=== PATIENT | male | born 1995 | race Caucasian/White ===

== ENCOUNTER 2017-11-06 11:07 | Emergency (ER) | payer SELFPAY ==
[~2017-11-06] VITALS: Ht 188 cm; Wt 82.0 kg
[~2017-11-06 11:07] MED LIST: VENTAER INH; ZITHTAB PO
[2017-11-06 11:08] VITALS: BP 132/90; PULSE 111; RESP 14; TEMP 98; O2SAT 100
[2017-11-06] MEDS ORDERED: KETOROLAC TROMETHAMINE 60 MG/2 ML (IM) VIAL IM ONE (11:45)
--- NOTE | 2017-11-06 12:22 | RADRPT ---
EXAM DATE/TIME: 11/06/2017 11:44 [place] COMPARISON: No previous studies available for comparison. INDICATIONS : Pain from impact with object. MEDICAL HISTORY : None. SURGICAL HISTORY : None. ENCOUNTER: Initial ACUITY: 2 days PAIN SCORE: 7/10 LOCATION: Left medial foot. FINDINGS: Three view examination of the left foot demonstrates no soft tissue swelling, dislocation, or fractur e. The tarsal bones appear intact. The interphalangeal and metatarsophalangeal joints are intact. The calcaneus is intact. Bony mineralization is normal. CONCLUSION: 1. No acute fracture or dislocation. Stan Sykes MD on November 06, 2017 at 12:20 Board Certified Radiologist. This report was verified electronically.
[2017-11-06] MEDS ORDERED: IBUP1TAB7 PO (12:30)
--- NOTE | 2017-11-06 12:30 | PD ---
HPI Chief Complaint: Injury Time Seen by Provider: 11:32 Travel History International Travel<30 days: No Contact w/Intl Traveler<30days: No Traveled to known affect area: No History of Present Illness HPI 22-year-old male presents to the emergency department with pain and swelling to the base of the left toe. Patient states he stubbed his toe on a barbell 2 days ago. Patient having difficulty ambulating secondary to the pain today. The area is swollen and red. The distal toe is normal. Patient has no fever chills or open wounds. Patient is allergic to diphenhydramine. PFSH Past Medical History Diminished Hearing: No Respiratory: Yes (WEAK LUNGS WHEN HE WAS A CHILD) Immunizations Current: Yes Tetanus Vaccination: Never Vaccinated Influenza Vaccination: No Past Surgical History Surgical History: No Previous Surgery Social History Alcohol Use: Yes (OCC) Tobacco Use: Yes (/2 PPD ) Substance Use: Yes (MARIJUANA - LAST USE THIS MORNING ) Allergies-Medications (Allergen,Severity, Reaction): Coded Allergies: diphenhydramine (Unverified Allergy, Severe, 11/06/17) EXTREME HYPERACTIVITY Reported Meds & Prescriptions Reported Meds & Active Scripts Active Review of Systems Except as stated in HPI: all other systems reviewed are Neg General / Constitutional: No: Fever Eyes: No: Visual changes HENT: No: Headaches Cardiovascular: No: Chest Pain or Discomfort Respiratory: No: Shortness of Breath Gastrointestinal: No: Abdominal Pain Genitourinary: No: Dysuria Musculoskeletal: Positive: Arthralgias, Limited ROM, Pain Skin: No Rash Neurologic: No: Weakness Psychiatric: No: Depression Endocrine: No: Polydipsia Hematologic/Lymphatic: No: Easy Bruising Physical Exam Narrative GENERAL: Patient appears in mild distress. SKIN: Warm and dry. Normal color. Normal turgor. Patient has erythema to the MIP joint of the left great toe. HEAD: Atraumatic. Normocephalic. EYES: Pupils equal and round. No scleral icterus. No injection or drainage. ENT: No nasal bleeding or discharge. Mucous membranes pink and moist. NECK: Trachea midline. Supple and nontender. CARDIOVASCULAR: Regular rate and rhythm. RESPIRATORY: No accessory muscle use. Clear to auscultation. Breath sounds equal bilaterally. GASTROINTESTINAL: Abdomen soft, non-tender, nondistended. Hepatic and splenic margins not palpable. MUSCULOSKELETAL: Extremities without clubbing, cyanosis, or edema. MIP joint of the left great toe is somewhat swollen and erythematous with tenderness with palpation and movement. No obvious deformity. NEUROLOGICAL: Awake and alert. No obvious cranial nerve deficits. Motor grossly within normal limits. Five out of 5 muscle strength in the arms and legs. Normal speech. PSYCHIATRIC: Appropriate mood and affect; insight and judgment normal. Data Data Last Documented VS Vital Signs Date Time Temp Pulse Resp B/P (MAP) Pulse Ox O2 Delivery O2 Flow Rate FiO2 11/06/17 11:23 Room Air 11/06/17 11:08 98.0 111 14 132/90 (104) 100 Orders Orders Ice/Cold Pack (11/06/17 11:35) Ketorolac Inj (Toradol Inj) (11/06/17 11:45) Foot, Complete ([id number]) (11/06/17 11:42) [facility] Medical Decision Making Medical Screen Exam Complete: Yes Emergency Medical Condition: Yes Differential Diagnosis Contusion. Reactive arthritis. Fracture. Narrative Course X-ray of the left great toe was ordered. Patient is given Toradol 60 mg IM. X-ray is negative for fracture or dislocation. Patient is placed in a postop shoe. Patient is given ibuprofen 800 mg 3 times a day #30. Patient should ice this area frequently. Is to follow up if symptoms do not improve or worsen as needed. Diagnosis Primary Impression: Contusion of left great toe without damage to nail, initial encounter Referrals: [facility] Patient Instructions: Foot Contusion (ED), General Instructions Additional Instructions: Patient is given Toradol 60 mg IM. X-ray is negative for fracture or dislocation. Patient is placed in a postop shoe. Patient is given ibuprofen 800 mg 3 times a day #30. Patient should ice this area frequently. Is to follow up if symptoms do not improve or worsen as needed. Med/Other Pt SpecificInfo: Prescription(s) given Disposition: 01 DISCHARGE HOME Condition: Stable Gerson Licona Nov 06, 2017 12:30
== END 2017-11-06 13:15 | disposition home or self-care (01) ==
LOC: NEPD 11:07
DX: S90.112A Contusion of left great toe without damage to nail, initial encounter (principal); F17.200 Nicotine dependence, unspecified, uncomplicated; W22.8XXA Striking against or struck by other objects, initial encounter
CPT/HCPCS: 73630; 96372; 99285; J1885